=== PATIENT | female | born 1960 | race Caucasian/White ===

== ENCOUNTER → 2021-04-25 | Outpatient (CLI) | payer BC, OTHER ==
[~2021-04-25] MED LIST: ALPRAZOLAM0.5 MG PO; BIOTIN5 MG PO; CELEXA40 MG PO; CLARITIN10 MG PO; PEPCID20 MG PO; VITAMIN D35000 UNI1 PO; ZANTAC 7575 MG PO; ZOFRAN4 MG PO
== END ==
LOC: KOH-I 12:54
DX: S92.522A Displaced fracture of middle phalanx of left lesser toe(s), initial encounter for closed fracture (principal)
CPT/HCPCS: 73630